=== PATIENT | female | born 1975 | race Native Hawaiian/Other Pacific Islander ===

== ENCOUNTER 2018-05-05 06:17 | Day surgery (SDC) | payer OTHER ==
[2018-05-05 06:55] VITALS: BMI 22.8
[2018-05-05] MEDS ORDERED: Bupivacaine 0.5% Inj(30mL) ONE (07:29)
[2018-05-05] MEDS ORDERED: ceFAZolin IV 1 gm in Dextrose 2 GM/100 ML BAG IVPB ONE (07:30)
[2018-05-05] MEDS ORDERED: Lidocaine 1% w Epi 1:100,000 Inj ONE ×2 (07:30→09:33)
[2018-05-05] MEDS ORDERED: Propofol 10 mg/ml Inj (20 ML) ONE (07:33)
[2018-05-05] MEDS ORDERED: Sevoflurane - Inhalation Anesthetic Liq (250 ml) ONE (07:34)
[2018-05-05] MEDS ORDERED: Rocuronium 10 mg/ml (5 ml) ONE (07:34)
[2018-05-05] MEDS ORDERED: Liquid Adhesive TOP ONE (07:47)
[2018-05-05] MEDS ORDERED: Methylene Blue 10 mg/mL(10ml) IV ONE (08:11)
[2018-05-05] MEDS ORDERED: TRANEXAMIC ACID IVPB ONE ×2 (09:05→09:15)
[2018-05-05] MEDS ORDERED: SODIUM CHLORIDE 0.9% IVPB ONE ×2 (09:05→09:15)
[2018-05-05] MEDS ORDERED: Tranexamic Acid 100 mg/ml IV ONE (09:25)
[2018-05-05] MEDS ORDERED: Lactated Ringer's 1,000 ML IV ONE ×3 (09:42→12:25)
[2018-05-05] MEDS ORDERED: ePHEDrine 50 mg/ml Inj ONE (10:36)
[2018-05-05] MEDS ORDERED: HYDROmorphone 0.5 mg/0.5 ml ISec IVP PRN (12:37)
[2018-05-05] MEDS ORDERED: Lactated Ringer's 1,000 ML IV SCH (12:45)
--- NOTE | 2018-05-05 13:33 | CP.SDSHP ---
Same Day Surgery H & P - History Proposed Procedure: revision of reconstructed breast right, left breast reduction Pre-Op Diagnosis: history of right breast cancer - Allergies Allergies: Allergies No Known Allergies Allergy (Verified 05/05/18 06:35) - Physical Exam Vital Signs: Vital Signs 05/05/18 05/05/18 05/05/18 06:56 08:08 08:11 Temperature 98 F Pulse Rate 85 85 85 Respiratory 18 Rate Blood Pressure 106/68 O2 Sat by Pulse 99 Oximetry Mental Status: Alert & Oriented x3 Neuro: WNL Lungs: WNL - Impression Impression: s/p bilateral breast surgery Pt. Evaluated Today:Candidate for Anesthesia & Procedure: Yes - Date & Time Date: 05/05/18 Time: 01:30 Short Stay Discharge - Short Stay Discharge Admitting Diagnosis/Reason for Visit: N65.1/ N65.0/ N62 Disposition: HOME/ ROUTINE
[2018-05-05 15:28] VITALS: RESP 18
[2018-05-05 16:19] VITALS: O2SAT 100
[2018-05-05 17:14] VITALS: BP 118/78; PULSE 92; TEMP 98.4
--- NOTE | 2018-05-10 21:07 | OP ---
PROCEDURE DATE: 05/05/2018 PROCEDURE: Bilateral breast reduction. SURGEON: Farhad Tavarez MD SPECIAL EFFECTS SPECIALIST: None. INDICATION OF PROCEDURE: This is a 43-year-old female with a history of right-sided breast cancer with lumpectomy and radiation that caused damage to her right breast. Radiation changes caused a shrinkage of right breast and tightening of the breast causing a significant symmetry defect between the left and the right sides along with dimpling of the right sided breast. The patient wished to correct the deformity and do a matching procedure on the left side. At the same time, she wished to be smaller overall. DESCRIPTION OF PROCEDURE: The patient was prepped and draped in the usual fashion. A vertical mastopexy was designed on the right side and an inverted-T mastopexy was designed on the left side. The vertical mastopexy designed on the right side was done such to minimize the amount of surgery and undermining necessary on the radiated breast. Nipple size on both sides was 42 mm. I started the procedure on the right side, incision lines were etched out using scalpel and then the periareolar skin was then de-epithelized. There was no undermining performed on the upper aspect of the breast. At the inferior pole of the breast along the lines of the skin resection, a wedge of breast granular tissue and fat tissues were excised to debulk the inferior pole of the breast. This was done again with very little undermining to the surrounding tissues to avoid any damage to prior radiated skin and soft tissue. The tissues were than brought together initially using 3-0 Monocryl into the breast parenchyma itself. The patient was then sat out and the size of the breast was assessed and it was thought that more tissue would be able to be removed safely. Thus further excision of breast parenchyma again following the same wedge format was done. A total of 161 g of tissue was removed from the right breast. Once this was complete, the breast parenchyma was irrigated with TXA and then sutured together using 3-0 Monocryl. The skin was closed preliminarily using rafia at this time. Attention was then turned to the left breast. Again, a 42 mm nipple-areolar complex was marked out in the patient along with the normal skin and soft tissue pedicle designed for a superomedial breast reduction. The periareolar skin was then de-epithelized and phased off of these robin and breast parenchyma was then removed from the inferior pole and the lateral pole of the breast in a standard superomedial breast reduction fashion. Hemostasis was obtained and normotension was confirmed during this hemostasis. The patient's skin was then tacked together preliminarily using 3-0 nylon and rafia and the patient was sat up again. Symmetry was assessed compared to the opposite breast and it was decided that more skin and soft tissue would be removed from the lower incision to create a more symmetric breast. The patient was laid flat and excess skin and glanular tissues were then removed. The patient was closed again preliminarily and sat out and it was noted that the breasts were now symmetric. Using a 38 mm Ener1 cutter, the nipple-areolar complex inset side was positioned to create symmetric breasts bilaterally. The skin was removed. Total volume of breast tissue removed from the left side at that point was 422 g. The patient was then closed using 3-0 Monocryl at the inferior border of the breast, 4-0 Monocryl along the vertical aspect of the incisions bilaterally, 4-0 Monocryl in the deep dermis periareolar, and then 4-0 subcuticular throughout the periareola of the vertical components and the inferior components of the breast reduction. Dermabond was then applied to the wounds along with a surgical bra. The patient tolerated the procedure well and was extubated and brought to the Recovery in good condition. Farhad Tavarez MD
== END 2018-05-05 17:40 | disposition home or self-care (01) ==
LOC: H.OPSURG 06:17
PROVIDERS: ATTEND Plastic Surgery
DX: C50.912 Malignant neoplasm of unspecified site of left female breast (principal); C50.911 Malignant neoplasm of unspecified site of right female breast
CPT/HCPCS: 19318; 88304; 88305; J0690; J1170; J1885; J2001; J2704; J3010; J7120